=== PATIENT | female | born 2000 | race Caucasian/White ===

== ENCOUNTER 2024-11-20 15:59 | Emergency (ER) | payer OTHER ==
[2024-11-20 17:59] LABS: #Basophils Less than 0.03 10x3/uL (0.0-0.2); #Eosinophils Less than 0.03 10x3/uL (0.0-0.5); #Monocytes 0.36 10x3/uL (0.0-1.1); #Neutrophils 7.58 10x3/uL (1.5-8.4); %Basophils 0.1 % (0.0-2.0); %Eosinophils 0.1 % (0.0-6.0); %Lymphocytes 13.2 % (18.0-47.0); %Monocytes 3.9 % (0.0-10.0); %Neutrophils 82.5 % (40.0-75.0); Hematocrit 38.9 % (34.9-44.5); Hemoglobin 13.0 g/dL (12.0-15.5); Mean Corpuscular Hemoglobin 27.0 pg (27.0-33.0); Mean Corpuscular Volume 80.9 fL (81.6-98.3); Platelet Count 285 10x3/uL (150-450); Red Blood Cell (RBC) Count 4.81 10x6/uL (3.90-5.03); White Blood Cell (WBC) Count 9.19 10x3/uL (3.5-10.5)
[2024-11-20 18:15] LABS: ALT (SGPT) 23 U/L (Less than 34); AST (SGOT) 21 U/L (11-34); Albumin 4.9 g/dL (3.1-4.5); Alkaline Phosphatase 69 U/L (40-110); Anion Gap 12 mmol/L (10-20); BUN (Urea Nitrogen) 11 mg/dL (7.0-18.7); Bilirubin, Total 0.4 mg/dL (0.3-1.2); Calc. Creatinine Clearance 0 mL/min (70-130); Calcium 9.3 mg/dL (7.8-10.44); Carbon Dioxide 25 mmol/L (22-29); Chloride 106 mmol/L (98-107); Globulin 4.2 g/dL (2.4-3.5); Glucose 136 mg/dL (70-105); Potassium 3.9 mmol/L (3.5-5.1); Sodium 139 mmol/L (136-145)
[2024-11-20 18:17] LABS: Troponin I Less than 0.010 ng/mL (< 0.028)
== END 2024-11-20 18:43 | disposition home or self-care (01) ==
LOC: CSHERS 15:59
DX: R55 Syncope and collapse (principal)
CPT/HCPCS: 36415; 80053; 84484; 85025; 93005; 99284